=== PATIENT | male | born 2000 | race Caucasian/White ===

== ENCOUNTER 2025-02-16 22:44 | Emergency (ER) | payer SELFPAY ==
[2025-02-16 22:49] VITALS: BP 121/70
[2025-02-16 23:00] LABS: Hematocrit 44.4 % (39.0-52.0); Hemoglobin 16.1 g/dL (13.0-18.0); Mean Corp Hgb Conc. 36.3 g/dL (33.0-37.0); Mean Corpuscular Volume 82.4 fL (80.0-94.0); Nucleated Red Blood Cells % 0 % (-); Platelet Count 257 10^3/uL (130-400); Red Cell Dist. Width 11.9 % (11.5-14.5)
[2025-02-16 23:13] LABS: ALT (SGPT) 18 U/L (0-50); AST (SGOT) 27 U/L (17-59); Albumin 5.0 g/dl (3.5-5.0); Alkaline Phosphatase 53 U/L (38-126); Blood Urea Nitrogen 17 mg/dl (9-20); Calcium 9.6 mg/dl (8.4-10.2); Carbon Dioxide 27 mmol/L (22-30); Chloride 100 mmol/L (98-107); Glucose 129 mg/dl (70-99); Lipase 104 U/L (23-300); Potassium 4.1 mmol/L (3.5-5.1); Sodium 136 mmol/L (135-145); Total Protein 7.6 g/dl (6.3-8.2); eGFR > 60.00
--- NOTE | 2025-02-17 00:09 | ED.GENMED ---
History of Present Illness
General
Chief Complaint: Abdominal Pain
Source: patient
Exam Limitations: none
Time Seen by Provider: 02/16/25 23:55
Nursing documentation reviewed up to this point in time: agreed with
History of Present Illness
History of Present Illness:
The patient is a 24-year-old male who presented with abdominal pain and constipation for approximately one week. He describes the abdominal pain as a persistent and burning sensation primarily in the upper abdomen, which worsens with food intake.
The patient reports constipation, with the last bowel movement occurring two to three days prior, and describes his stools as soft and thin 2-3 days ago. Somewhat harder stool on Wednesday with bright red blood streaks noted around them on Wednesday. He
had a single episode of bleeding with no recurrence, though he notes a burning sensation. He denies nausea, vomiting, or diarrhea. He has not experienced any similar symptoms before. He was evaluated at [facility] on Wednesday and reports undergoing
CT abdomen pelvis and blood work that were normal.
The patient denies any significant past medical history. He has history of appendectomy in the past. He is not currently on any daily medications. He does not smoke. He consumes alcohol, generally 3 times per week. He also notes 1-2 caffeinated
drinks per day. He denies NSAID nor aspirin use.
He notes that 6 days ago he had a finger inserted in his rectum and the finger was noted to have small amount of blood on the nail. He has been quite worried for rectal puncture/perforation. He denies foreign objects in his rectum nor other trauma
besides a finger introduced to his rectum 6 days ago. Of note the CAT scan performed at another ED was 2 days after the digital rectal incident. Given the reported to be unremarkable patient was concern for potential 'small tear' He does admit
that he has been quite concerned and worried throughout the week. He also notes that he has had no further rectal bleeding. He denies rectal pain with defecation.
Past History
Past History
ED Past Medical History: None
ED Past Surgical History: Appendectomy
Social History
Tobacco: Non-smoker
Alcohol: Occasional
Drug: None
Personal: Single
Living: with family
Employment: Student
Family History
Family History: Other (Noncontributory)
Phy Exam
Physical Exam
Physical Exam:
GENERAL: 24-year-old male appears his stated age, awake and alert, pleasant, very mildly apprehensive otherwise easily communicative and in no acute distress. Vital signs within normal limits.
EYE: anicteric
NECK: Supple, nontender, no meningismus, no significant adenopathy.
ENT: oral mucosa is moist. No rhinorrhea.
CARDIAC: Regular rate and rhythm. no murmur.
LUNGS: Clear breath sounds bilaterally, no acute respiratory distress, no wheezes/rales/rhonchi
ABDOMEN: Soft, nondistended, minimal tenderness epigastric region with deep palpation only, no r/g, no cvat. normoactive BS. Rectal exam reveals no stool per vault, no masses, nontender, heme-negative.
NEUROLOGICAL: Alert and oriented x3, no focal neuro deficits. Gait is oliveira and steady.
SKIN: Warm and dry, normal color, skin intact. No rash.
MUSCULOSKELETAL: No C/C/E. peripheral pulses are full and equal b/l. No palpable tenderness.
PSYCH: Normal and appropriate interaction.
Course
Orders/Labs/Results
Orders:
Orders
02/16/25 22:54
Complete Blood Count/With Diff Urgent
Comprehensive Metabolic Panel Urgent
Lipase Urgent
02/17/25 00:08
Mag Hydrox/Al Hydrox/Simeth [Maalox] 30 ml Phenobarb/Hyoscy/Atropine/Scop [] 10 ml Viscous Lidocaine 2% [Xylocaine Viscous Cup] 10 ml PO NOW
CR Obstruct Series W/pa Chest Urgent
Comment:
Reason For Exam: gen abd pain x 6 days
02/17/25 00:40
Mag Hydrox/Al Hydrox/Simeth [Maalox] 30 ml .ROUTE .STK-MED ONE
Phenobarb/Hyoscy/Atropine/Scop [] 10 ml .ROUTE .STK-MED ONE
Viscous Lidocaine 2% [Xylocaine Viscous Cup] 15 ml .ROUTE .STK-MED ONE
02/17/25 01:12
Pantoprazole [Protonix] 40 mg PO NOW STA
Abnormal Lab Results
02/16/25
22:54
Absolute Monos (auto) 0.7 H 10^3/uL
(0.1-0.6)
Glucose 129 H mg/dl
(70-99)
02/16/25 22:54
02/16/25 22:54
Vital Signs
Initial and Last Documented VS:
Initial Vital Signs
Temp Pulse Resp BP Pulse Ox
98.2 F 95 14 121/70 97
02/16/25 22:49 02/16/25 22:49 02/16/25 22:49 02/16/25 22:49 02/16/25 22:49
Last Documented Vital Signs
Temp Pulse Resp BP Pulse Ox
98.2 F 95 14 121/70 97
02/16/25 22:49 02/16/25 22:49 02/16/25 22:49 02/16/25 22:49 02/17/25 00:10
MDM/Problems Addressed
Differential Diagnosis Includes:
The differential diagnosis includes, in no particular order and is not limited to:
1. Gastritis
2. Peptic Ulcer Disease
3. Gastroesophageal Reflux Disease (GERD)
4. Internal Hemorrhoids
5. Constipation
6. Irritable Bowel Syndrome (IBS)
7. Colorectal Neoplasm
8. Bowel Obstruction
9. Inflammatory Bowel Disease (IBD)
10. Anal Fissure
MDM/Problems Addressed:
Abdominal pain, single episode of bright red rectal bleeding 5 days ago.
Overall well in appearance and reassuring that patient has undergone unremarkable CT abdomen pelvis just 4 days ago. He is most worried for rectal injury after digital rectal experience 6 days ago.
It is reassuring that patient has had no rectal pain, no recurrent rectal bleeding and also reassuring that he has undergone an unremarkable CT abdomen and pelvis.
Labs again are completely normal.
I suspect that his ongoing worry throughout the week may be an element of gastritis.
Will trial a GI cocktail and will check obstruction series to assess for bowel gas, potential free air, constipation. With reassuring labs and reassuring exam, repeat CAT scan at this point is not indicated.
*Radiology
Radiology exam reviewed: preliminary read by ED provider (Obstruction series is overall unremarkable. No free air, no obstruction. There is a small metallic like foreign body left upper quadrant of unknown significance. May be a pill fragment.)
*Pulse Oximetry
SaO2: 97
Oxygen Mode of Delivery: Room air
Patient hypoxic: no
*Critical Care Note
Total Time (30-74mins, 75-104mins- exclusive of procedures): Not Applicable
Update Note
Update Note:
01:15
Upper abdominal burning pain has improved after GI cocktail. Resting comfortably.
Obstruction series is unremarkable.
Will initiate a short course of Protonix for what I suspect is acute gastritis.
Discussed importance of limiting caffeinated beverages and at least temporarily discontinue alcoholic beverages.
Otherwise discussed importance of staying well-hydrated on a daily basis. Soft bland foods.
Patient currently does not have a primary care physician. Will refer to our family practice residency clinic for follow-up.
ED Attending Note
-
Portions of this chart may have been created with voice recognition software.� Occasional wrong word or��sound alike� substitutions may have occurred due to the inherent limitations of voice recognition software.
Discharge Plan
Departure
Patient Disposition: Home (Routine Discharge)
Date of Disposition: 02/17/25
Time of Disposition: 01:13
Patient with high blood pressure during this ER visit?: No
Condition: Good
Discharge Problem:
Acute gastritis, minor digital rectal trauma
Instructions: [place] diet, Gastritis - ED (DC)
Prescriptions:
New
pantoprazole [Protonix] 40 mg tablet,delayed release (DR/EC)
40 mg PO DAILY Qty: 30 0RF
Referrals:
[facility] [Outside] - Call in 1-3 days for appt
NONE,* [Family Provider, Internal Medicine]
Interventions
Interventions:
*Risk Screen - Suicide Last Done: 02/16/25 22:49
*General Assessment Last Done: 02/16/25 22:49
*Neglect/Abuse Screening Last Done: 02/16/25 22:49
Discharge Date and Time
Print Language: [place]
[2025-02-17] MEDS: MAALOX 40 PO (00:42)
[2025-02-17] MEDS: PROTONIX 40 MG PO (01:22)
== END 2025-02-17 01:29 | disposition home or self-care (01) ==
LOC: EMR 22:44
PROVIDERS: EMERGENCY PHYSICIAN Emergency Medicine
DX: K29.00 Acute gastritis without bleeding (principal); S36.69XA Other injury of rectum, initial encounter; X58.XXXA Exposure to other specified factors, initial encounter
CPT/HCPCS: 99284; 74022; 80053; 83690; 85025

== ENCOUNTER 2025-02-17 19:36 | Emergency (ER) | payer SELFPAY ==
[2025-02-17 19:43] VITALS: BP 108/81
--- NOTE | 2025-02-17 22:43 | ED.GENMED ---
History of Present Illness
<Karmen Leigh MD, Resident - Last Filed: 02/18/25 06:06>
General
Chief Complaint: Abdominal Symptoms
Source: patient
Time Seen by Provider: 02/17/25 22:07
History of Present Illness
History of Present Illness:
Patient is a 24-year-old man who presents to the emergency department after being discharged the day before for constipation and abdominal pain approximately for 1 week. He described the abdominal pain as persistent and having a burning sensation
primarily in the that also radiated down to his suprapubic region. The pain worsened with food intake. Patient reports constipation with his last bowel movement occurring about 2 days ago and he describes his stools as soft and thin. he noted
that 6 days prior to his initial presentation he had a finger inserted into his rectum and the finger was noted to have a small amount of blood on the fingernail. Since that episode he has been worried about the possibility of rectal
puncture/perforation. He denies any foreign objects in his rectum or consumption of any foreign bodies. The initial insult occurred on Wednesday of last week. On Wednesday he thought he a clot and on Wednesday he had a red streak on his stool. He
reported having black spots on his stool over the last week. He had nausea and vomiting this evening prompting him to return to the emergency department for further evaluation.
Past History
<Karmen Leigh MD, Resident - Last Filed: 02/18/25 06:06>
Past History
ED Past Medical History: None
ED Past Surgical History: Appendectomy
Social History
Tobacco: Non-smoker
Alcohol: Occasional
Drug: None
Personal: Single
Living: with family
Employment: Student
Family History
Family History: Other (Noncontributory)
Review of Systems
<Karmen Leigh MD, Resident - Last Filed: 02/18/25 06:06>
Review of Systems
Constitutional: Reports no symptoms
EENT: Reports no symptoms
Respiratory: Reports no symptoms
ABD/GI: Reports no symptoms
: Reports no symptoms
Musculoskeletal: Reports no symptoms
Skin: Reports no symptoms
Neurological: Reports no symptoms
Endocrine: Reports no symptoms
Hematologic/Lymphatic: Reports no symptoms
Psychiatric: Reports no symptoms
Phy Exam
<Karmen Leigh MD, Resident - Last Filed: 02/18/25 06:06>
General Physical Exam
General Presentation: well appearing and no apparent distress
General age: appears stated age
General Skin: warm and dry
General Habitus: normal
General Mental: alert and anxious
General Hydration: appears well hydrated
Cardiovascular Exam
Cardiovascular Exam: regular rate/rhythm, no edema, no gallop, no JVD, no murmur and normal peripheral pulses
Pulmonary Exam
Pulmonary Exam: lungs clear, no respiratory distress, no rales, chest non tender, no crackles, no rhonchi, no stridor, no wheezing and no cough
Course
<Karmen Leigh MD, Resident - Last Filed: 02/18/25 06:06>
Vital Signs
Initial and Last Documented VS:
Initial Vital Signs
Temp Pulse Resp BP Pulse Ox
97.2 F 72 18 108/81 97
02/17/25 19:43 02/17/25 19:43 02/17/25 19:43 02/17/25 19:43 02/17/25 19:43
Last Documented Vital Signs
Temp Pulse Resp BP Pulse Ox
97.2 F 72 18 108/81 97
02/17/25 19:43 02/17/25 19:43 02/17/25 19:43 02/17/25 19:43 02/17/25 22:44
<Dian Chow DO - Last Filed: 02/17/25 23:20>
Vital Signs
Initial and Last Documented VS:
Initial Vital Signs
Temp Pulse Resp BP Pulse Ox
97.2 F 72 18 108/81 97
02/17/25 19:43 02/17/25 19:43 02/17/25 19:43 02/17/25 19:43 02/17/25 19:43
Last Documented Vital Signs
Temp Pulse Resp BP Pulse Ox
97.2 F 72 18 108/81 97
02/17/25 19:43 02/17/25 19:43 02/17/25 19:43 02/17/25 19:43 02/17/25 22:44
<Karmen Leigh MD, Resident - Last Filed: 02/18/25 06:06>
*Pulse Oximetry
SaO2: 97
Oxygen Mode of Delivery: Room air
Patient hypoxic: no
*Critical Care Note
Total Time (30-74mins, 75-104mins- exclusive of procedures): 60
<Karmen Leigh MD, Resident - Last Filed: 02/18/25 06:06>
Update Note
Update Note:
Problem List:
Constipation
abdominal pain
burning sensation in the abdomen
Plan:
Review records from [facility]
Zofran for antiemetic
Hemoccult blood test
Differential Diagnoses:
gastritis
peptic ulcer disease
GERD
internal hemorrhoids
constipation
irritable bowel syndrome
bowel obstruction
inflammatory bowel disease
anal fissure
Radiology: Reviewed CT scan from [facility]. CT scan unremarkable.
EKG: not applicable
Labs: not applicable
Updates:
Reviewed records from prior evaluation at [facility] including CT scan. All 5 during that encounter were benign and are corroborated during her prior patient yesterday in the emergency department.
It is unlikely that this patient suffers from any kind of perforation or adverse consequence from digital trauma to the rectum. It is possible that the patient has anxiety and is suffering from gastritis and the symptoms of his gastritis may be
exacerbating the patient's anxiety he is very healthy and has never had any severe illnesses in the past. patient has been advised to a diet and high-fiber and avoid foods that may exacerbate his gastritis. Patient should continue to take his
Protonix
Patient believes that he is back at his baseline and would like to be discharged at the present time. Patient is safe to be discharged.
ED Attending Note
<Karmen Leigh MD, Resident - Last Filed: 02/18/25 06:06>
-
Portions of this chart may have been created with voice recognition software.� Occasional wrong word or��sound alike� substitutions may have occurred due to the inherent limitations of voice recognition software.
<Dian Chow DO - Last Filed: 02/17/25 23:20>
ED Attending Note
Patient seen and examined by attending physician: Yes
I performed a history and physical exam of patient and discussed management with resident, I reviewed resident's note and agree with documented findings and plan of care.: Yes
ED Attending Note:
This is a 24-year-old gentleman who was evaluated by myself just yesterday for similar complaints of somewhat burning mid to upper abdominal pain, constipation and 1 episode of bright red blood streaked around a somewhat hard stool 6 days ago. No
recurrent episodes of rectal bleeding. Over the past week he has been consumed with worry for potential anal/rectal perforation after having a finger inserted into his rectum 1 week ago and was noted to have scant blood on said finger upon withdraw.
Evaluated at a different ED 5 days ago and underwent unremarkable laboratory studies, unremarkable CT of the abdomen pelvis.
During yesterday's visit, laboratory studies again all within normal limits. Rectal exam was unremarkable, no stool within the vault, no rectal pain nor palpable masses, heme-negative.
Obstruction series yesterday showed mild constipation but no obstipation, no obstruction, no free air. A small metallic foreign body left upper quadrant of questionable significance. Patient adamantly denies ingesting foreign objects and denies
any other rectal foreign bodies.
He was started on Protonix yesterday for possible gastritis and he has picked up this prescription.
He returns tonight with complaints of an episode of nausea and not bloody vomitus that occurred around 6 PM. No recurrent episodes and currently denies nausea. He ate dinner after that episode of vomiting consisting of 2 hot dogs.
24-year-old male appears his stated age, awake and alert, pleasant, appears in no acute distress. Mildly anxious. Vital signs within normal limits.
Abdomen is soft, nondistended, without appreciable tenderness. No palpable masses. Normoactive bowel sounds.
Rectal exam by resident again is unremarkable, heme-negative.
At this point with reassuring laboratory studies yesterday as well as several days ago, unremarkable CAT scan and unremarkable obstruction series there is no indication for repeated studies.
I do suspect an element of gastritis and may be exacerbated by frequent alcohol consumption, daily caffeine consumption and significant ongoing worry.
Encouraged to continue Protonix on a daily basis, avoid caffeinated beverages, avoid alcoholic beverages, avoid NSAIDs. He has also been encouraged to initiate a soft bland diet at least over the next week and recommend he initiate a daily fiber
supplement for mild constipation.
Will prescribe Zofran for as needed nausea.
Encouraged prompt follow-up with PCP and he will again be referred to our family practice residency clinic.
Return precautions discussed.
Discharge Plan
Departure
Patient Disposition: Home (Routine Discharge)
Date of Disposition: 02/17/25
Time of Disposition: 23:12
Patient with high blood pressure during this ER visit?: No
Discharge Problem:
Acute gastritis
Instructions: [place] Diet, Nausea and Vomiting, Adult (DC)
Prescriptions:
New
ondansetron HCl 4 mg tablet
4 mg PO Q8H PRN (Reason: nausea and vomiting) Qty: 30 0RF
No Action
pantoprazole [Protonix] 40 mg tablet,delayed release (DR/EC)
40 mg PO DAILY Qty: 30 0RF
Referrals:
NONE,* [Family Provider, Internal Medicine]
Interventions
Interventions:
*Risk Screen - Suicide Last Done: 02/17/25 19:43
*General Assessment Last Done: 02/17/25 19:43
*Neglect/Abuse Screening Last Done: 02/17/25 19:43
*Nursing Disposition Last Done: 02/17/25 23:17
PX-Zcjcsh-[id number] Assessment Last Done: 02/17/25 22:00
Discharge Date and Time
Discharge Date/Time: 02/17/25 23:18
Print Language: MALAY
== END 2025-02-17 23:18 | disposition home or self-care (01) ==
LOC: EMR 19:36
PROVIDERS: EMERGENCY PHYSICIAN Emergency Medicine
DX: K29.00 Acute gastritis without bleeding (principal)
CPT/HCPCS: 99282